=== PATIENT | female | born 2000 | race Hispanic/Latino ===

== ENCOUNTER 2022-08-11 20:33 | Emergency (ER) | payer OTHER, SELFPAY ==
[2022-08-11] MEDS ORDERED: Lidocaine 1% (PF) 30 ML VIAL ONE (22:03)
[2022-08-11] MEDS ORDERED: Boostrix 0.5 ML (Tdap) VIAL (>/=7 yrs of age) ONE ×2 (22:03→22:23)
[2022-08-11] MEDS ORDERED: Ketorolac Tromethamine 30 MG/ML VIAL ONE (23:04)
[2022-08-12] MEDS ORDERED: Lidocaine 1% PF 5 ML VIAL ONE (08:14)
[2022-08-12] MEDS ORDERED: Lidocaine 1% w/Epinephrine 1:200K 30 ML VIAL ONE (08:14)
== END 2022-08-11 23:11 | disposition home or self-care (01) ==
LOC: CSHERS 20:33
DX: S61.411A Laceration without foreign body of right hand, initial encounter (principal); M25.532 Pain in left wrist; V43.52XA Car driver injured in collision with other type car in traffic accident, initial encounter; Y92.410 Unspecified street and highway as the place of occurrence of the external cause
CPT/HCPCS: 12002; 90471; 90715; 96372; J1885; J2001

== ENCOUNTER 2022-08-12 07:39 | Emergency (ER) | payer OTHER, SELFPAY | END 2022-08-12 08:58 | disposition home or self-care (01) | LOC: CSHERS 07:39 | DX: T81.30XA Disruption of wound, unspecified, initial encounter (principal) | CPT/HCPCS: 99282 ==